=== PATIENT | male | born 1955 | race Two or more races ===

== ENCOUNTER 2018-04-14 12:24 | Day surgery (SDC) | payer BC ==
[2018-04-14] MEDS ORDERED: LIDOCAINE 2% (SDV) 5 ML INJ (15:04)
[2018-04-14] MEDS ORDERED: PROPOFOL 40 ML (15:04)
[2018-04-14] MEDS ORDERED: GLYCOPYRROLATE 0.4 MG INJ (15:15)
[2018-04-14] MEDS ORDERED: DEXTROSE 50% 50 ML SYRINGE (15:19)
[2018-04-14] MEDS ORDERED: ONDANSETRON 4 MG INJ IV (15:30)
== END 2018-04-14 16:24 | disposition home or self-care (01) ==
LOC: GIL 12:24
DX: Z12.11 Encounter for screening for malignant neoplasm of colon (principal); K64.8 Other hemorrhoids; E11.9 Type 2 diabetes mellitus without complications; E78.5 Hyperlipidemia, unspecified; I12.9 Hypertensive chronic kidney disease with stage 1 through stage 4 chronic kidney disease, or unspecified chronic kidney disease; N18.9 Chronic kidney disease, unspecified; N18.2 Chronic kidney disease, stage 2 (mild)
CPT/HCPCS: 45378; 82962